=== PATIENT | female | born 1975 | race Caucasian/White ===

== ENCOUNTER → 2016-07-19 | Outpatient (CLI) | payer MEDICAID ==
--- OUTSIDE RECORDS SUMMARY | 2016-07-19 10:28 | XMS REPORT ---
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 Problem Exostosis of unspecified site 726.91 Active Problem Cellulitis and abscess of leg, except foot 682.6 Active Problem Dental caries K02.9 Active Problem Anxiety F41.9 Active Problem Mild acid reflux K21.9 Active Problem Sprain and strain of tarsometatarsal (joint) (ligament) 845.11 Active Problem Corns and callosities 700 Active Problem Bipolar 1 disorder F31.9 Active Problem Encounter for dental examination Z01.20 Active Problem 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
--- NOTE | 2016-07-19 19:15 | Diagnostic Imaging Report ---
INDICATION: Screening. At this time there are no current complaints. EXAMINATION: Bilateral digital screening Mammogram with CAD. The current study was also evaluated with a Computer Aided Detection (CAD) system. COMPARISON: This study was compared to the prior exam of 01/10/10. FINDINGS: The fibroglandular tissue in both breasts is heterogeneously dense. This does limit the sensitivity of this exam. On the MLO view of the left breast, deep in the breast, approximately 11 cm from the nipple, there is a 1 cm area of increased density. There is no corresponding abnormality seen with certainty on the CC view and I suspect this finding is more likely due to superimposition than to an underlying abnormality. Even so, I would recommend that a compression view of this area be obtained in the MLO projection for further evaluation. A true lateral view should also be performed. If this density persists, then ultrasound may be necessary as well. The right breast is unchanged. IMPRESSION: Additional mammographic views of the left breast would be recommended for further study. Ultrasound may also be necessary. Dictated by: Dictated on workstation # [id number]
== END ==
LOC: RAD 10:24
PROVIDERS: ATTEND Nurse Practitioner Community Health
DX: Z12.31 Encounter for screening mammogram for malignant neoplasm of breast (principal)
CPT/HCPCS: 77067

== ENCOUNTER → 2016-07-30 | Outpatient (CLI) | payer MEDICAID ==
--- NOTE | 2016-07-30 20:47 | Diagnostic Imaging Report ---
EXAM: Ultrasound of the left breast. INDICATION: Abnormal mammogram. FINDINGS: The screening mammogram performed on 07/19/2016 noted an area of increased density deep in the midportion of the left breast. The diagnostic mammogram performed earlier today failed to show any sign of malignancy in this area. On this exam, there is no discrete solid or cystic mass in the inferior half of the breast. I suspect that the density seen on the previous exam was secondary to superimposition of the heterogeneously dense fibroglandular tissue. Even so, I would recommend that a short-term (six-month) follow-up mammogram and ultrasound of the left breast be obtained for continued evaluation. IMPRESSION: There is no evidence for malignancy. Recommendations, as above. ACR BI-RADS Category 3: Probably benign findings. Result letter will be mailed to the patient. Note: At least 10% of breast cancer is not imaged by mammography. Dictated by: Dictated on workstation # [id number]
--- NOTE | 2016-07-30 20:48 | Diagnostic Imaging Report ---
EXAM: Mammography of the left breast. The current study was also evaluated with a Computer Aided Detection (CAD) system. INDICATION: Abnormal mammogram. FINDINGS: The screening mammogram performed on 07/19/2016 noted an area of increased density deep in the left breast. The diagnostic mammogram performed earlier today failed to show any sign of malignancy in this area. On this exam, there is no discrete mass visualized. I suspect that the area in question seen on the screening mammogram was secondary to superimposition of the fibroglandular tissue. Even so, ultrasound would be recommended for further study. IMPRESSION: There is no evidence for malignancy. Recommendations as above. ACR BI-RADS Category 0: Additional imaging required. Result letter will be mailed to the patient. Note: At least 10% of breast cancer is not imaged by mammography. Dictated by: Dictated on workstation # [id number]
== END ==
LOC: RAD 08:29
PROVIDERS: ATTEND Nurse Practitioner Community Health
DX: R92.8 Other abnormal and inconclusive findings on diagnostic imaging of breast (principal)
CPT/HCPCS: 76642

== ENCOUNTER → 2020-09-06 | Outpatient (CLI) | payer MEDICAID ==
--- NOTE | 2020-09-06 16:18 | Diagnostic Imaging Report ---
INDICATION: Routine screening. COMPARISON: 07/19/2016 and 01/10/2010. TECHNIQUE: 2D and 3D bilateral screening mammography was performed with CAD. FINDINGS: Both breasts remain heterogeneously dense, limiting the sensitivity of mammography. Scattered benign calcifications are noted throughout both breasts. Benign nodules in the outer portions of both breasts appear stable. No spiculated mass or malignant appearing microcalcifications are seen. The axillae are unremarkable. IMPRESSION: No mammographic features suspicious for malignancy are identified. ACR BI-RADS Category 2: Benign findings. Result letter will be mailed to the patient. Note: At least 10% of breast cancer is not imaged by mammography. Dictated by: Dictated on workstation # [id number]
== END ==
LOC: RAD 13:11
PROVIDERS: ATTEND Nurse Practitioner
DX: Z12.31 Encounter for screening mammogram for malignant neoplasm of breast (principal)
CPT/HCPCS: 77063; 77067